=== PATIENT | female | born 1965 | race Caucasian/White ===

== ENCOUNTER 2018-01-29 08:13 | Day surgery (SDC) | payer OTHER ==
[~2018-01-29] VITALS: Ht 170.2 cm; Wt 95.3 kg
[2018-01-29] MEDS: MIDAZOLAM 2 MG/2 ML VIAL IVP ONE (10:02)
[2018-01-29] MEDS ORDERED: LIDOCAINE 2% 100 MG/5 ML UJET TP ONE (10:02)
[2018-01-29] MEDS ORDERED: fentaNYL 0.05 MG/ML VIAL ONE (10:02)
[2018-01-29] MEDS ORDERED: MIDAZOLAM 2 MG/2 ML VIAL ONE (10:02)
[2018-01-29] MEDS: fentaNYL 0.05 MG/ML VIAL IVP ONE (10:03)
[2018-01-29] MEDS ORDERED: ASPI81CT89 PO (10:47)
[2018-01-29] MEDS ORDERED: LISI10TA11 PO (10:48)
[2018-01-29] MEDS ORDERED: METO25TA14 PO (10:48)
[2018-01-29] MEDS ORDERED: NAPR-54 PO (10:49)
[2018-01-29] MEDS ORDERED: VITD1000 PO (10:49)
== END 2018-01-29 13:06 | disposition home or self-care (01) ==
LOC: MDS 08:13 → MMU 08:13 → EDSEX 08:13 → MDS 13:06
PROVIDERS: ATTEND Internal Medicine Gastroenterology
DX: Z12.11 Encounter for screening for malignant neoplasm of colon (principal); K22.10 Ulcer of esophagus without bleeding; K44.9 Diaphragmatic hernia without obstruction or gangrene; K57.30 Diverticulosis of large intestine without perforation or abscess without bleeding; I10 Essential (primary) hypertension; E66.9 Obesity, unspecified; K21.9 Gastro-esophageal reflux disease without esophagitis; G43.909 Migraine, unspecified, not intractable, without status migrainosus; K29.70 Gastritis, unspecified, without bleeding; F41.9 Anxiety disorder, unspecified; Z80.0 Family history of malignant neoplasm of digestive organs; Z88.0 Allergy status to penicillin; Z79.82 Long term (current) use of aspirin; Z79.899 Other long term (current) drug therapy; Z68.33 Body mass index [BMI] 33.0-33.9, adult; Z98.890 Other specified postprocedural states
CPT/HCPCS: 43235; 45378; J2250; J3010

== ENCOUNTER 2023-05-06 09:13 | Day surgery (SDC) | payer OTHER ==
[~2023-05-06] VITALS: Ht 170.2 cm; Wt 98.9 kg
[~2023-05-06 09:13] MED LIST: ASPI-1822 PO; CHOL100084 PO; LISI-486 PO; METO25TA14 PO; NAPR-54 PO
[2023-05-06] MEDS ORDERED: fentaNYL citrate 0.05 MG/ML VIAL ONE (10:03)
[2023-05-06] MEDS ORDERED: MIDAZOLAM 5 MG/5 ML VIAL ONE (10:04)
[2023-05-06] MEDS ORDERED: diphenhydrAMINE 50 MG/ML VIAL ONE (10:20)
[2023-05-06] MEDS: MIDAZOLAM 2 MG/2 ML VIAL IVP ONE (10:26)
[2023-05-06] MEDS: fentaNYL citrate 0.05 MG/ML VIAL IVP ONE (10:27)
[2023-05-06] MEDS: diphenhydrAMINE 50 MG/ML VIAL IVP ONE (10:28)
== END 2023-05-06 11:25 | disposition home or self-care (01) ==
LOC: MDS 09:13 → MMU 09:15 → MDS 11:25
PROVIDERS: ATTEND Internal Medicine Gastroenterology
DX: R13.10 Dysphagia, unspecified (principal); K21.00 Gastro-esophageal reflux disease with esophagitis, without bleeding; K22.10 Ulcer of esophagus without bleeding; K76.0 Fatty (change of) liver, not elsewhere classified; Z88.0 Allergy status to penicillin; Z79.899 Other long term (current) drug therapy
CPT/HCPCS: 43239; 88305; 88312; J1200; J2250; J3010